=== PATIENT | female | born 1965 | race Caucasian/White ===

== ENCOUNTER → 2018-09-08 13:42 | Outpatient (CLI) | payer OTHER, SELFPAY ==
--- NOTE | 2018-09-08 13:47 | DI.RAD.S_ITS ---
PROCEDURE: XR FINGER LT MIN 2V INDICATIONS: Left index finger pain TECHNIQUE: AP hand, 2 views of the second finger(s) acquired. COMPARISON: None. FINDINGS: Bones: No fractures or dislocations. No suspicious bony lesions. Soft tissues: No suspicious soft tissue calcifications. IMPRESSION: No definite radiographic abnormality. If pain persists, consider cross sectional imaging such as CT or MRI for further assessment. Dictated by: Jeffery Irving A Interpreted: Criss Valdez MD on 09/08/2018 at 14:03 Approved by: Criss Valdez MD, PhD on 09/08/2018 at 14:30
== END ==
PROVIDERS: PCP Family Medicine; Visit Provider Family Medicine
DX: M79.645 Pain in left finger(s) (principal)
CPT/HCPCS: 73140

== ENCOUNTER → 2019-04-06 08:38 | Outpatient (CLI) | payer OTHER, SELFPAY ==
[2019-04-06 09:21] LABS: Add Manual Diff / Slide Review NO; Alanine Aminotransferase 18 IU/L (9-52); Albumin 4.3 g/dL (3.5-5.0); Albumin Globulin Ratio 1.7 (1.0-2.8); Alkaline Phosphatase 70 U/L (38-126); Aspartate Aminotransferase 21 IU/L (14-36); BUN Creatinine Ratio 15.7 (6-22); Basophils Absolute Auto 0 /uL (0-100); Basophils Percent Auto 0.6 % (0-2); Bilirubin Total 0.5 mg/dL (0.2-1.3); Blood Urea Nitrogen 11 mg/dL (7-17); Calcium 9.4 mg/dL (8.4-10.2); Carbon Dioxide 29 mmol/L (22-32); Chloride 103 mmol/L (98-107); Cholesterol 187 mg/dL (140-199); Eosinophils Absolute Auto 100 /uL (0-450); Eosinophils Percent Auto 1.6 % (2-4); Estimated Glomerular Filt Rate > 60.0 mL/min (>60); Globulin 2.6 g/dL (1.7-4.1); Glucose 92 mg/dL (70-100); HDL Cholesterol 64 mg/dL (40-60); HEMOLYSIS < 15 (0-50); Hematocrit 40.7 % (36-46); Hemoglobin 13.7 g/dL (12.0-16.0); LDL Cholesterol Calculated 108 mg/dL (<100); Lymphocytes Absolute Auto 1700 /uL (1100-4500); Mean Corpuscular HGB Conc 33.7 % (30-36); Mean Corpuscular Hemoglobin 30.9 PG (26-34); Mean Corpuscular Volume 91.6 fL (80-100); Monocytes Absolute Auto 300 /uL (0-900); Monocytes Percent Auto 6.1 % (3-14); Neutrophils Absolute Auto 3100 /uL (1500-7000); Neutrophils Percent Auto 59.7 % (50-75); Platelet Count 262 X10^3/uL (150-400); Potassium 4.8 mmol/L (3.4-5.1); Red Blood Cell Count 4.44 X10^6/uL (4.0-5.2); Red Cell Distribution Width 12.6 % (11.6-14.8); Sodium 140 mmol/L (137-145); Total Protein 6.9 g/dL (6.3-8.2); Triglycerides 77 mg/dL (35-150); White Blood Cell Count 5.3 X10^3/uL (4.5-11.0)
[2019-04-06 10:17] LABS: TSH w/ Reflex to FT4 5.03 uIU/mL (0.47-4.68)
[2019-04-06 10:47] LABS: Free T4, Direct Thyroxine 0.78 ng/dL (0.78-2.19)
== END ==
PROVIDERS: PCP Nurse Practitioner; Visit Provider Nurse Practitioner
DX: Z87.898 Personal history of other specified conditions (principal)
CPT/HCPCS: 36415; 80053; 80061; 84439; 84443; 85025

== ENCOUNTER → 2019-04-19 07:40 | Outpatient (CLI) | payer OTHER, SELFPAY ==
--- NOTE | 2019-04-19 07:42 | DI.MRI.S_ITS ---
PROCEDURE: MR BRAIN (PITUITARY) WWO CON INDICATIONS: pituitary tumor TECHNIQUE: Noncontrast sagittal and axial FLAIR, axial gradient echo, axial diffusion and ADC through the brain. Thin-slice sagittal and coronal T1 spin echo, coronal T2 fast spin echo through the pituitary. After the administration contrast, optional dynamic coronal T1 spin echo, thin-slice coronal and sagittal T1 spin echo images through the pituitary fossa; axial T1 spin echo with fat saturation through the brain. COMPARISON: [facility], MR, BRAIN WITHOUT CONTRAST, 11/16/2013, 9:11. [facility], MR, BRAIN (PITUITARY) W&WO CONTRAS, 11/18/2013, 17:10. [facility], MR, BRAIN (PITUITARY) W&WO CONTRAS, 05/24/2015, 9:39. FINDINGS: Image quality: Excellent. Pituitary Gland: There is again seen a nodule along the superior aspect of the pituitary gland, which is mildly hyperintense to the adjacent normal pituitary on precontrast T1-weighted imaging and slightly hyperintense on T2-weighted imaging. On postcontrast images, this focus does not appreciably enhance.. This measures up to 5 mm. It is unchanged over prior examinations dating back to 2013 The pituitary gland demonstrates normal signal and bulk. On the postcontrast imaging, no additional masses or abnormally enhancing areas are seen. The pituitary stalk and infundibulum have an unremarkable appearance. A normal appearing pituitary bright spot is seen posteriorly on the precontrast sagittal T1-weighted images. The optic chiasm and the ventral forebrain have an unremarkable appearance. CSF Spaces: Ventricles are normal in size and shape. Basal cisterns are patent. No extra-axial fluid collections. Brain: No intracranial bleeds or mass effects. No abnormal intracranial enhancement. Ascencio-white matter interface is intact. Diffusion weighted images demonstrate no acute ischemic insults. Brainstem is normal. Normal intravascular flow voids are present. Skull and face: Calvarial marrow is normal in signal. Orbits appear normal. Sinuses: Sinuses and mastoids are clear. IMPRESSION: There is a stable 5 millimeter nodule along the superior aspect of the pituitary gland, which is unchanged compared to 2014. 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 Dictated by: Wilian Dasilva M.D. on 04/19/2019 at 9:07 Approved by: Wilian Dasilva M.D. on 04/19/2019 at 9:11
== END ==
PROVIDERS: PCP Nurse Practitioner; Visit Provider Nurse Practitioner
DX: D49.7 Neoplasm of unspecified behavior of endocrine glands and other parts of nervous system (principal)
CPT/HCPCS: 70553

== ENCOUNTER → 2019-07-21 09:06 | Outpatient (CLI) | payer OTHER, SELFPAY ==
[2019-07-21 10:57] LABS: Thyroid Stimulating Hormone 1.57 uIU/mL (0.47-4.68)
== END ==
PROVIDERS: PCP Nurse Practitioner; Visit Provider Nurse Practitioner
DX: E03.9 Hypothyroidism, unspecified (principal)
CPT/HCPCS: 36415; 84443

== ENCOUNTER → 2020-02-14 06:47 | Outpatient (CLI) | payer OTHER, SELFPAY ==
[2020-02-14 09:04] LABS: Thyroid Stimulating Hormone 2.31 uIU/mL (0.47-4.68)
== END ==
PROVIDERS: PCP Nurse Practitioner; Referring Provider Nurse Practitioner; Visit Provider Nurse Practitioner
DX: E03.9 Hypothyroidism, unspecified (principal)
CPT/HCPCS: 36415; 84443